=== PATIENT | female | born 1930 | race African-American/Black ===

== ENCOUNTER 2018-08-06 20:16 | Inpatient (IN) | payer MEDICARE, BC ==
[~2018-08-06] VITALS: Ht 157.5 cm; Wt 47.2 kg
[2018-08-06 20:54] LABS: Urine Bacteria NONE SEEN /hpf (None Seen); Urine Blood Negative /uL (Negative); Urine Specific Gravity 1.001 (1.001-1.035); Urine WBC 1 /hpf (0 - 5)
[2018-08-06 22:36] LABS: Basophils # (auto) 0.1 uL; Eosinophils # (auto) 0.1 uL; Lymphocytes # (auto) 1.1 uL; Monocytes # (auto) 0.5 uL; White Blood Cell 5.7 10^3/uL (4.4-10.8)
[2018-08-06 22:37] LABS: Basophils % (auto) 1.1 % (0.0-2.0); Eosinophils % (auto) 1.5 % (0.0-7.0); Hematocrit 36.6 % (36.0-46.0); Hemoglobin 11.8 g/dL (12.2-16.2); Lymphocytes % (auto) 19.8 % (10.0-50.0); Mean Corpuscular Hemoglobin 26.7 pg (28.0-32.0); Mean Corpuscular Hgb Conc. 32.3 g/dL (32.0-36.0); Mean Corpuscular Volume 82.8 fL (80.0-100.0); Monocytes % (auto) 8.7 % (0.0-12.0); Neutrophils # (auto) 3.9 uL; Neutrophils % (auto) 68.9 % (37.0-80.0); Nucleated Red Blood Cells % 0.1 %; Platelet Count (auto) 589 10^3/uL (140-450); Red Blood Cells 4.42 10^6/uL (4.0-5.20); Red Cell Distribution Width 15.3 % (11.8-14.3)
[2018-08-06 22:39] LABS: INR 1.13 (0.9-1.15)
[2018-08-06 22:44] LABS: Albumin 2.5 g/dL (3.4-5.0); Anion Gap 6 (5-15); Aspartate Aminotransferase 16 U/L (15-37); BUN/Creatinine Ratio 17.8; Blood Urea Nitrogen 16 mg/dL (7-18); Calcium 8.3 mg/dL (8.5-10.1); Carbon Dioxide 26 mmol/L (21-32); Chloride 109 mmol/L (98-107); GFR African American 76 mL/min; GFR Non-African American 63 mL/min; Glucose 91 mg/dL (74-106); Magnesium 2.5 mg/dL (1.6-2.6); Potassium 4.4 mmol/L (3.5-5.1); Sodium 141 mmol/L (136-145)
[2018-08-06 22:53] LABS: Alanine Aminotransferase 11 U/L (13-56); Alkaline Phosphatase 77 U/L (45-117); Bilirubin, Total < 0.1 mg/dL (0.2-1.0); Total Protein 7.6 g/dL (6.4-8.2)
[2018-08-07] MEDS ORDERED: LEVOFLOXACIN 750MG 150 ML IV ONE (01:15)
[2018-08-07] MEDS ORDERED: ACETAMINOPHEN 500 MG TAB PO PRN (04:30)
[2018-08-07] MEDS ORDERED: ONDANSETRON HCL 4 MG/2 ML VIAL IV PRN (04:30)
[2018-08-07 05:54] LABS: Basophils # (auto) 0.1 uL; Basophils % (auto) 1.2 % (0.0-2.0); Eosinophils # (auto) 0.1 uL; Hemoglobin 10.9 g/dL (12.2-16.2); Lymphocytes % (auto) 17.6 % (10.0-50.0); Mean Corpuscular Hemoglobin 27.1 pg (28.0-32.0); Mean Corpuscular Volume 82.1 fL (80.0-100.0); Monocytes # (auto) 0.4 uL; Monocytes % (auto) 7.7 % (0.0-12.0); Neutrophils # (auto) 4.1 uL; Neutrophils % (auto) 72.5 % (37.0-80.0); Nucleated Red Blood Cells % 0.1 %; Platelet Count (auto) 556 10^3/uL (140-450); Red Blood Cells 4.02 10^6/uL (4.0-5.20); Red Cell Distribution Width 15.3 % (11.8-14.3); White Blood Cell 5.7 10^3/uL (4.4-10.8)
[2018-08-07 06:08] LABS: BUN/Creatinine Ratio 16.5; Calcium 8.2 mg/dL (8.5-10.1); Potassium 4.2 mmol/L (3.5-5.1)
[2018-08-07] MEDS: cefTRIAXone 1GM/50ML D5W 50 ML IV SCH (09:00)
[2018-08-07] MEDS ORDERED: LISINOPRIL 10 MG TAB PO SCH (10:00)
[2018-08-07] MEDS: FAMOTIDINE 20 MG TAB PO SCH (10:12)
[2018-08-07] MEDS: AZITHROMYCIN 500MG/ 250ML 250 ML IV SCH (10:12)
[2018-08-07 13:00] VITALS: BP 152/80
--- NOTE | 2018-08-07 13:00 | NUR ---
Serena from ER [facility] admitted to Telemetry unit after SBAR received. Patient oriented to Lily Varela, primary RN, unit, room, bed, and unit policies regarding patient care and visiting hours. Patient weighed by bedscale and encouraged to call if they need something. All questions and concerns addressed, patient verbalized understanding. Note: DAUGHTER AND FAMILY AT BEDSIDE. PT ALERT AND ORIENTED X 4. DENIES ANY PAIN OR SOB AT THIS TIME. DENIES NEED FOR O2/NASAL CANULA. O2 SAT 97% IN ROOM AIR.
[2018-08-07 13:30] VITALS: BP 150/86
--- NOTE | 2018-08-07 13:30 | NUR ---
STRICT ASPIRATION PRECAUTION
--- NOTE | 2018-08-07 13:30 | NUR ---
DIETARY SPOKE TO DIETARY AND INFORMED THEM THE PT'S NEED TO HAVE HER FOOD "EXTRA PUREED AND SUPER SMOOTH". PT HAVE ESOPHAGEAL STRICTURE AND ON STRICT ASPIRATION PRECAUTION.
[2018-08-07] MEDS ORDERED: ALBUTEROL SULF 2.5 MG/0.5ML(0.5%) NEB SOLN NEB PRN (16:00)
[2018-08-07] MEDS ORDERED: IPRATROPIUM BROM 0.5 MG/2.5ML INH SOL NEB PRN (16:00)
[2018-08-07] MEDS ORDERED: hydrALAZINE HCL 20 MG/ML VL IV PRN (16:00)
[2018-08-07] MEDS: SODIUM CHLORIDE 0.9% 1,000 ML IV SCH (16:00)
--- NOTE | 2018-08-07 16:35 | NUR ---
PAGED DR PANG RE: PT'S VTE SCORE AND RISK. WAITING FOR CALL BACK.
[2018-08-07] MEDS ORDERED: ENOXAPARIN SOD 30 MG/0.3 ML SYRINGE SC ONE (17:30)
[2018-08-07 18:59] LABS: % Iron Saturation 10.6 % (15-50)
--- NOTE | 2018-08-07 19:11 | NUR ---
CLOSING NOTES PT IN BED, AWAKE AND ALERT. EATING DINNER. FAMILY AT BEDSIDE. DENIES PAIN OR SOB.
[2018-08-07] MEDS ORDERED: LISI-646 PO (19:31)
--- NOTE | 2018-08-07 19:58 | NUR ---
OPENING NOTES RECEIVED REPORT FROM DAY SHIFT NURSE. PT IS AWAKE AND ORIENTATED X 4 WITH NO S/S OF DISTRESS NOR PAIN. PT IS ON ROOM AIR. BED IS IN LOWEST POSITION WITH SIDE RAILS UP X 2. BED BRAKES ARE LOCKED AND CALL LIGHT IS WITHIN REACH. WILL CONTINUE TO MONITOR Q 1HR.
[2018-08-07 20:00] VITALS: BP 164/89
[2018-08-07 20:12] VITALS: BP 150/86
[2018-08-07 22:00] VITALS: BP 171/78
[2018-08-07 23:48] VITALS: BP 147/95
--- NOTE | 2018-08-08 02:25 | NUR ---
ALOC PT WALKED OUT TO THE NURSING STATION. ASKING WHY SHE WAS HERE. PT ALSO UNAWARE OF LOCATION. VITAL SIGNS TAKEN AND ARE FOLLOWED: TEMP 97.5; BP 140/80; HR 110; SPO2 94; RR 18. PT ASKED NUMEROUS TIME WHERE AND WHY SHE'S HERE. DONE MULTIPLE ATTEMPTS TO ORIENT PATIENT TO LOCATION AND SITUATION UNSUCCESSFULLY. PT'S AGITATION GREW AND STARTED TO CRY. SHE GOT HER CELL AND CALLED HER DAUGHTER, JAYDE MELARA, DAUGHTER ABLE TO ORIENT PATIENT TO LOCATION AND SITUATION SUCCESSFULLY. PT ALERT AND ORIENTATED X 4 WITH NO S/S OF DISTRESS NOR ANXIETY. PATIENT DESCRIBED THE EARLIER EPISODE OF WAKING UP AND NOT RECOGNIZING ANYTHING, BEING HOOKED UP TO THE IV PT FELT "TRAPPED," BEING ALONE AND NOT SEEING HER GRANDDAUGHTER AT BEDSIDE CAUSED HER TO FEEL "TRAPPED" AND "IMPRISONED."
[2018-08-08 06:00] VITALS: BP 142/73
[2018-08-08 07:02] LABS: Basophils # (auto) 0 uL; Eosinophils # (auto) 0 uL; Hemoglobin 11.2 g/dL (12.2-16.2); Lymphocytes # (auto) 0.8 uL; Monocytes # (auto) 0.5 uL; Nucleated Red Blood Cells % 0.1 %
[2018-08-08 07:04] LABS: Basophils % (auto) 0.2 % (0.0-2.0); Eosinophils % (auto) 0.5 % (0.0-7.0); Hematocrit 35.1 % (36.0-46.0); Lymphocytes % (auto) 13.2 % (10.0-50.0); Mean Corpuscular Hemoglobin 26.4 pg (28.0-32.0); Mean Corpuscular Volume 82.5 fL (80.0-100.0); Monocytes % (auto) 7.7 % (0.0-12.0); Neutrophils # (auto) 4.9 uL; Neutrophils % (auto) 78.4 % (37.0-80.0); Platelet Count (auto) 548 10^3/uL (140-450); Red Blood Cells 4.26 10^6/uL (4.0-5.20); Red Cell Distribution Width 15.4 % (11.8-14.3); White Blood Cell 6.2 10^3/uL (4.4-10.8)
[2018-08-08 07:26] LABS: Calcium 8.5 mg/dL (8.5-10.1); Magnesium 2.5 mg/dL (1.6-2.6)
[2018-08-08 07:30] LABS: BUN/Creatinine Ratio 18.4
--- NOTE | 2018-08-08 07:45 | NUR ---
closing notes endorsed care to day shift RNStefani.
--- NOTE | 2018-08-08 07:53 | NUR ---
PT ASSESSED FOR PRN HHN TX. PT IS ON ROOM AIR, SPO2 96%, HR 96, RR 18. NO S.S OF RESPIRATORY DISTRESS AT THIS TIME. PT AWARE TO HAVE RT PAGED IF BREATHING TX IS INDICATED. WILL CONTINUE TO MONITOR.
[2018-08-08 09:25] VITALS: BP 134/85
[2018-08-08] MEDS: cefTRIAXone 1GM/50ML D5W 50 ML IV SCH (10:15)
[2018-08-08] MEDS: FAMOTIDINE 20 MG TAB PO SCH (10:15)
[2018-08-08] MEDS: ENOXAPARIN SOD 30 MG/0.3 ML SYRINGE SC SCH (10:15)
[2018-08-08] MEDS: AZITHROMYCIN 500MG/ 250ML 250 ML IV SCH (10:16)
[2018-08-08] MEDS: LISINOPRIL 10 MG TAB PO SCH (10:19)
--- NOTE | 2018-08-08 10:39 | NUR ---
Hospitalist at bedside MD Olivarez at bedside, aware of patients status. New orders received for echo. Will cont care
[2018-08-08] MEDS: SODIUM CHLORIDE 0.9% 1,000 ML IV SCH (12:00)
[2018-08-08 12:23] VITALS: BP 127/70
[2018-08-08 16:41] VITALS: BP 142/75
--- NOTE | 2018-08-08 19:05 | NUR ---
Patient care endorsed endorsed care to Brett terrazas. Pt sitting up in bed no acute distress or sob noted
[2018-08-08 22:00] VITALS: BP 136/77
[2018-08-09 05:18] VITALS: BP 142/88
[2018-08-09 08:34] VITALS: BP 144/91
--- NOTE | 2018-08-09 08:37 | NUR ---
PT REPORTS THAT HE WALKS FINE AND DOES NOT NEED P.T. INTERVENTION.
--- NOTE | 2018-08-09 10:20 | NUR ---
MD AT BEDSIDE MD PANG AWARE OF PATIENTS STATUS, NEW ORDERS RECEIVED FOR CT ANGIO. TECH PAGED TO BEDSIDE. WILL CONT CARE
[2018-08-09] MEDS: SODIUM CHLORIDE 0.9% 1,000 ML IV SCH (11:09)
[2018-08-09] MEDS: cefTRIAXone 1GM/50ML D5W 50 ML IV SCH (11:09)
[2018-08-09] MEDS: FAMOTIDINE 20 MG TAB PO SCH (11:10)
[2018-08-09] MEDS: AZITHROMYCIN 500MG/ 250ML 250 ML IV SCH (11:10)
[2018-08-09] MEDS: LISINOPRIL 10 MG TAB PO SCH (11:12)
[2018-08-09] MEDS: ENOXAPARIN SOD 30 MG/0.3 ML SYRINGE SC SCH (11:12)
[2018-08-09] MEDS ORDERED: IOHEXOL 350 MG/ML 100ML IJ ONE (11:26)
--- NOTE | 2018-08-09 11:43 | NUR ---
Patient taken down to CT
[2018-08-09 13:00] VITALS: BP 137/85
--- NOTE | 2018-08-09 16:06 | NUR ---
Spoke to MD Spoke to MD Olivarez, awaiting echo results at this time. Per MD cont NS as 50ml as ordered s/p IV contrast. Will continue care
[2018-08-09 16:55] VITALS: BP 130/77
--- NOTE | 2018-08-09 19:20 | NUR ---
Opening Shift Note Assumed care of patient from day shift RN Nai. Pt is awake and alert and oriented x4. No S/S of distress/SOB or pain. Safety maintained with bed rails upx2, locked and in lowest position with call vicente within reach. Instructed on POC and to call for assist PRN, will continue to monitor for changes Q1hr and PRN.
[2018-08-09 22:00] VITALS: BP 147/89
--- NOTE | 2018-08-09 23:50 | NUR ---
Respiratory note: PT ASSESSED FOR PRN MED NEB TX. HR 81, RR 16, SPO2 97% ON 2L NC, BS DIMINISHED. NO SIGNS OF ANY RESPIRATORY DISTRESS NOTED. ADVISED PT TO PLEASE CALL IF NEEDED.
--- NOTE | 2018-08-10 00:45 | NUR ---
IV insertion IV access obtained, via clean sterile technique by inserting 22 gauge catheter at LEFT WRIST after 2 attempt(s). IV secured properly. No trauma to site. Patient tolerated well. IV removal RIGHT FA IV LEAKING. IV DC'd with clean sterile technique, catheter fully intact. Pressure dressing applied to site. Patient tolerated well.
[2018-08-10] MEDS: SODIUM CHLORIDE 0.9% 1,000 ML IV SCH (04:00)
[2018-08-10 05:00] VITALS: BP 147/77
[2018-08-10 06:45] LABS: Potassium 3.9 mmol/L (3.5-5.1)
[2018-08-10 06:48] LABS: BUN/Creatinine Ratio 12.7
--- NOTE | 2018-08-10 06:53 | NUR ---
Respiratory note: PT ASSESSED FOR PRN MED NEB TX, NO TX DESIRED NOR INDICATED. PT AWAKE/ALERT DENIES ANY SOB/DIFF BREATHING NO DISTRESS NOTED. HR 95 RR 16 SPO2 94% ON RA BREATH SOUNDS ARE DIMINISHED T/O. PT AND RN AWARE TO HAVE RT PAGED IF NEEDED.
[2018-08-10] MEDS: cefTRIAXone 1GM/50ML D5W 50 ML IV SCH (08:58)
[2018-08-10 09:08] VITALS: BP 149/77
[2018-08-10] MEDS: AZITHROMYCIN 500MG/ 250ML 250 ML IV SCH (09:42)
[2018-08-10] MEDS: FAMOTIDINE 20 MG TAB PO SCH (09:42)
[2018-08-10] MEDS: LISINOPRIL 10 MG TAB PO SCH (09:43)
[2018-08-10] MEDS: ENOXAPARIN SOD 30 MG/0.3 ML SYRINGE SC SCH (09:43)
--- NOTE | 2018-08-10 10:46 | NUR ---
AT BEDSIDE MD PANG AT BEDSIDE. AWARE OF PATIENTS STATUS. NEW ORDERS FOR D/C HOME TODAY.MD SPOKE TO PATIENT'S DAUGHTER/CAREGIVER REGARDING F/U INSTRUCTIONS OVER THE PHONE.
[2018-08-10] MEDS ORDERED: LEVO750T2 PO (11:35)
[2018-08-10] MEDS ORDERED: SACC250C PO (11:35)
[2018-08-10] MEDS ORDERED: ALBUAER3 IN (11:47)
[2018-08-10 13:00] VITALS: BP 142/81
--- NOTE | 2018-08-10 16:26 | NUR ---
Discharge instructions given as ordered to patient and caregiver. Encourage to follow up with PMD as instructed. All questions and concerns addressed. Patient verbalized understanding. Medication reconciliation form completed and copy given to patient. IV removed with catheter intact, pressure dressing applied. Patient ambulated to vehicle with all personal belongings accompanied by her son. No s/s of distress or sob noted. Pt denies pain.
== END 2018-08-10 16:26 | disposition home or self-care (01) | DRG 177 ==
LOC: ER 20:16 → OVERFLOW 08-07 04:28 → CENTRAL 08-07 12:57
PROVIDERS: ADMIT Nurse Practitioner Family; ATTEND Internal Medicine
DX: J69.0 Pneumonitis due to inhalation of food and vomit (principal); J96.00 Acute respiratory failure, unspecified whether with hypoxia or hypercapnia; J44.1 Chronic obstructive pulmonary disease with (acute) exacerbation; J44.0 Chronic obstructive pulmonary disease with (acute) lower respiratory infection; J90 Pleural effusion, not elsewhere classified; E78.5 Hyperlipidemia, unspecified; D63.8 Anemia in other chronic diseases classified elsewhere; I11.9 Hypertensive heart disease without heart failure; R91.1 Solitary pulmonary nodule; Z87.891 Personal history of nicotine dependence
CPT/HCPCS: 36415; 71045; 71275; 80048; 80053; 80061; 81001; 83540; 83550; 83605; 83735; 83880; 84443; 84484; 85025; 85379; 85610; 85730; 87040; 87086; 87804; 93005; 93306; 96361; 96365; 96367; G0378; J0696; J1956

== ENCOUNTER 2018-09-09 13:25 | Emergency (ER) | payer MEDICARE, BC ==
[~2018-09-09] VITALS: Ht 154.9 cm; Wt 44.5 kg
[~2018-09-09 13:25] MED LIST: ALBUAER3 IN; LEVO750T2 PO; LISI-646 PO; SACC250C PO
[2018-09-09 14:20] LABS: Eosinophils # (auto) 0 uL; Eosinophils % (auto) 0.6 % (0.0-7.0); Hemoglobin 13.2 g/dL (12.2-16.2); Mean Corpuscular Hemoglobin 26.8 pg (28.0-32.0); Monocytes # (auto) 0.5 uL; Nucleated Red Blood Cells % 0.1 %; Red Blood Cells 4.95 10^6/uL (4.0-5.20)
[2018-09-09 14:22] LABS: Basophils # (auto) 0.1 uL; Basophils % (auto) 1.3 % (0.0-2.0); Hematocrit 40.9 % (36.0-46.0); Mean Corpuscular Hgb Conc. 32.4 g/dL (32.0-36.0); Mean Corpuscular Volume 82.6 fL (80.0-100.0); Monocytes % (auto) 8.3 % (0.0-12.0); Neutrophils # (auto) 4.1 uL; Neutrophils % (auto) 71.8 % (37.0-80.0); Platelet Count (auto) 310 10^3/uL (140-450); White Blood Cell 5.7 10^3/uL (4.4-10.8)
[2018-09-09 14:37] LABS: Albumin 3.3 g/dL (3.4-5.0); Anion Gap 5 (5-15); BUN/Creatinine Ratio 16.4; Blood Urea Nitrogen 19 mg/dL (7-18); Calcium 8.7 mg/dL (8.5-10.1); Carbon Dioxide 29 mmol/L (21-32); Chloride 105 mmol/L (98-107); GFR African American 57 mL/min; GFR Non-African American 47 mL/min; Glucose 149 mg/dL (74-106); Magnesium 2.4 mg/dL (1.6-2.6); Potassium 3.8 mmol/L (3.5-5.1); Sodium 139 mmol/L (136-145)
[2018-09-09 14:42] LABS: Alanine Aminotransferase 13 U/L (13-56); Alkaline Phosphatase 86 U/L (45-117); Aspartate Aminotransferase 23 U/L (15-37); Bilirubin, Total 0.5 mg/dL (0.2-1.0); Total Protein 7.9 g/dL (6.4-8.2)
[2018-09-09 16:55] LABS: Urine Bacteria FEW /hpf (None Seen); Urine Blood Negative /uL (Negative); Urine Specific Gravity 1.006 (1.001-1.035); Urine WBC 1 /hpf (0 - 5)
[2018-09-09 17:15] VITALS: BP 142/69
== END 2018-09-09 18:14 | disposition home or self-care (01) ==
LOC: EDBD 13:25 → ER 13:34
DX: R55 Syncope and collapse (principal); I10 Essential (primary) hypertension; Z88.8 Allergy status to other drugs, medicaments and biological substances; Z79.899 Other long term (current) drug therapy
CPT/HCPCS: 36415; 70450; 71045; 80053; 81001; 83735; 84484; 85025; 93005

== ENCOUNTER 2019-03-28 15:02 | Inpatient (IN) | payer MEDICARE, BC ==
[~2019-03-28] VITALS: Ht 157.5 cm; Wt 37.6 kg
[2019-03-28 17:08] LABS: Eosinophils # (auto) 0 uL; Eosinophils % (auto) 0.2 % (0.0-7.0); Monocytes # (auto) 0.6 uL; White Blood Cell 8.7 10^3/uL (4.4-10.8)
[2019-03-28 17:09] LABS: Basophils # (auto) 0.1 uL; Basophils % (auto) 0.9 % (0.0-2.0); Hematocrit 36.4 % (36.0-46.0); Hemoglobin 11.7 g/dL (12.2-16.2); Lymphocytes # (auto) 1.3 uL; Lymphocytes % (auto) 14.8 % (10.0-50.0); Mean Corpuscular Hemoglobin 26.8 pg (28.0-32.0); Mean Corpuscular Volume 83.7 fL (80.0-100.0); Monocytes % (auto) 7.4 % (0.0-12.0); Neutrophils # (auto) 6.6 uL; Neutrophils % (auto) 76.7 % (37.0-80.0); Platelet Count (auto) 369 10^3/uL (140-450); Red Blood Cells 4.35 10^6/uL (4.0-5.20); Red Cell Distribution Width 17.5 % (11.8-14.3)
[2019-03-28 17:12] LABS: Urine Bacteria NONE SEEN /hpf (None Seen); Urine Blood Negative /uL (Negative); Urine WBC 13 /hpf (0 - 5)
[2019-03-28 17:16] LABS: Albumin 2.8 g/dL (3.4-5.0); Calcium 8.7 mg/dL (8.5-10.1); Potassium 3.9 mmol/L (3.5-5.1)
[2019-03-28 17:20] LABS: BUN/Creatinine Ratio 19.3; Bilirubin, Total 0.2 mg/dL (0.2-1.0); Total Protein 8.7 g/dL (6.4-8.2)
[2019-03-28] MEDS ORDERED: AZITHROMYCIN 500MG/ 250ML 250 ML IV ONE (18:30)
[2019-03-28] MEDS ORDERED: cefTRIAXone 1GM/50ML D5W 50 ML IV ONE (18:30)
[2019-03-28] MEDS ORDERED: ALBUTEROL SULF 2.5 MG/0.5ML(0.5%) NEB SOLN NEB PRN (21:00)
[2019-03-28] MEDS ORDERED: TEMAZEPAM 15 MG CAP PO PRN (21:00)
[2019-03-28] MEDS ORDERED: ACETAMINOPHEN 325 MG TAB PO PRN (21:00)
[2019-03-28] MEDS ORDERED: DOCUSATE SOD 100 MG CAP PO PRN (21:00)
[2019-03-28] MEDS ORDERED: HYDROcodone-ACET 5/325MG TAB PO PRN (21:00)
[2019-03-28] MEDS ORDERED: MECLIZINE HCL 25 MG TAB PO PRN (21:00)
[2019-03-28 22:30] VITALS: BP 123/61
--- NOTE | 2019-03-28 22:30 | NUR ---
MS admit from ER [facility] admitted to tele/MS. Patient oriented to DANIEL CHANCE RN primary RN, unit, room, bed, and unit policies regarding patient care and visiting hours. Patient weighed by bed scale and encouraged to call if they need something. All questions and concerns addressed, patient verbalized understanding.
--- NOTE | 2019-03-28 23:00 | NUR ---
Per Mariajose, patient's daughter, Patient had a chest CT due to nodule in lung. The results have been received today by the patient's PCP and are available for review upon request.
[2019-03-28] MEDS ORDERED: INFLUENZA QUAD 2019-2020 0.5ml SYRG IM ONE (23:15)
[2019-03-28] MEDS ORDERED: PNEUMOCOCCAL VACC POLYS 25 MCG/0.5 ML VIAL IM ONE (23:15)
--- NOTE | 2019-03-29 00:05 | NUR ---
Respiratory note: PT SEEN AND ASSESSED FOR PRN MED NEB TX AT 0005. TX NOT INDICATED AT THIS TIME. PT IS SLEEPING WITH NO SIGNS OF DISTRESS NOTED. HR 81 RR 18 96% ON ROOM AIR.
[2019-03-29 00:38] VITALS: BP 123/61
[2019-03-29 05:00] VITALS: BP 108/58
[2019-03-29 06:26] LABS: Basophils # (auto) 0.1 uL; Basophils % (auto) 0.9 % (0.0-2.0); Eosinophils # (auto) 0.1 uL; Eosinophils % (auto) 1.1 % (0.0-7.0); Hematocrit 33.1 % (36.0-46.0); Hemoglobin 10.7 g/dL (12.2-16.2); Lymphocytes # (auto) 1.6 uL; Lymphocytes % (auto) 24.3 % (10.0-50.0); Mean Corpuscular Hemoglobin 26.8 pg (28.0-32.0); Mean Corpuscular Hgb Conc. 32.4 g/dL (32.0-36.0); Mean Corpuscular Volume 82.6 fL (80.0-100.0); Monocytes # (auto) 0.6 uL; Monocytes % (auto) 9.7 % (0.0-12.0); Neutrophils # (auto) 4.2 uL; Nucleated Red Blood Cells % 0.1 %; Platelet Count (auto) 346 10^3/uL (140-450); White Blood Cell 6.6 10^3/uL (4.4-10.8)
[2019-03-29 06:52] LABS: Calcium 8.4 mg/dL (8.5-10.1); Potassium 3.9 mmol/L (3.5-5.1)
[2019-03-29 06:55] LABS: BUN/Creatinine Ratio 18.2
--- NOTE | 2019-03-29 07:30 | NUR ---
Opening Shift Note Assumed care of patient, awake and alert. No S/S of distress/SOB or pain. Instructed on POC and to call for assist PRN, will continue to monitor for changes Q1hr and PRN.
[2019-03-29 09:00] VITALS: BP 122/71
[2019-03-29] MEDS: cefTRIAXone 1GM/50ML D5W 50 ML IV SCH (09:19)
--- NOTE | 2019-03-29 09:30 | NUR ---
DAUGHTER AT BEDSIDE
--- NOTE | 2019-03-29 11:22 | NUR ---
Respiratory note: PT ASSESSED FOR VA N MED NEB TX. TX IS NOT INDICATED AT THIS TIME. NO SOB NOTED ON RA. HR 86, RR 14, POX 99%. B/S ARE CLEAR THROUGHOUT WITH INSPIRATORY CRACKLES IN THE LLL POSTERIORLY. PT IS AWARE THAT SHE CAN HAVE A MED NEB TX IF SHE FEELS SOB.
[2019-03-29] MEDS: AZITHROMYCIN 500MG/ 250ML 250 ML IV SCH (11:57)
[2019-03-29] MEDS: LISINOPRIL 20 MG TAB PO SCH (11:59)
--- NOTE | 2019-03-29 12:30 | NUR ---
Dr. Hirsch at bedside, explained plan of care to patient.
--- NOTE | 2019-03-29 12:31 | NUR ---
IV insertion IV access obtained, via clean sterile technique by inserting 22 gauge catheter at RIGHT FOREARM after 2 attempt(s). IV secured properly. No trauma to site. Patient tolerated well. NOTE: IV removal PREVIOUS IV PUFFY AND TENDER. DC'd with clean sterile technique, catheter fully intact. Pressure dressing applied to site. Patient tolerated well. NOTE:
[2019-03-29 13:00] VITALS: BP 120/68
--- NOTE | 2019-03-29 15:30 | NUR ---
Rounds Patient awake and alert. No S/S of distress/SOB or pain. Will continue to monitor changes q1hr and PRN.
[2019-03-29 17:00] VITALS: BP 120/68
--- NOTE | 2019-03-29 18:00 | NUR ---
Rounds Patient awake and alert. No S/S of distress/SOB or pain. Will continue to monitor changes q1hr and PRN. FAMILY AT BEDSIDE.
--- NOTE | 2019-03-29 18:52 | NUR ---
PT ASSESSED FOR PRN MED NEB TX. SPO2 99% ON RA , HR 75. PT DENIES ANY RESPIRATORY DISTRESS. NO TX INDICATED. PT IS AWARE TO HAVE RT PAGED IF TX NEEDED.
--- NOTE | 2019-03-29 19:41 | NUR ---
RECEIVED PATIENT FROM DAY SHIFT RN. PATIENT RESTING IN BED. FAMILY AT BEDSIDE. NO S/S OF DISTRESS NOTED. DENIED PAIN FOR NOW. POC INSTRUCTED AND ENCOURAGED PATIENT TO CALL FOR COMMERCIAL ENGINEER IF NEEDED. BED IN LOWEST POSITION WITH SIDE RAILS UP X 2. CALL [place] WITHIN REACH. ALARM ON. CONTINUE TO MONITOR FOR CHANGES Q1H AND PRN.
[2019-03-29 22:00] VITALS: BP 130/68
--- NOTE | 2019-03-29 22:28 | NUR ---
SPUTUM SAMPLE COLLECTED AND SENT. CONTINUE TO MONITOR.
--- NOTE | 2019-03-29 23:56 | NUR ---
PATIENT WALKED TO BATHROOM WITH STEADY GAIT. NO S/S OF DISTRESS NOTED. CONTINUE CARE.
--- NOTE | 2019-03-30 02:54 | NUR ---
PATIENT SLEEPING. NO S/S OF DISTRESS NOTED. CONTINUE CARE.
[2019-03-30 05:37] VITALS: BP 117/77
--- NOTE | 2019-03-30 07:41 | NUR ---
Opening Note Assumed pt care from [facility] nurse. Pt is a/ox4 with no s/s of distress or SOB. Pt is currently laying upright in bed with no complaints at this time. Discussed POC with pt; pt verbalized understanding. Safety measures maintained with call light within reach, bed in lowest position and side rails up. Will continue to monitor for changes q1he and prn.
--- NOTE | 2019-03-30 08:44 | NUR ---
Dr Hirsch at Bedside MD discussed plans to D/C on PO antibiotics. Pt verbalized understanding. Will follow through with d/c orders.
[2019-03-30] MEDS: cefTRIAXone 1GM/50ML D5W 50 ML IV SCH (08:48)
[2019-03-30 09:00] VITALS: BP 118/71
[2019-03-30] MEDS: AZITHROMYCIN 500MG/ 250ML 250 ML IV SCH (09:44)
[2019-03-30] MEDS: LISINOPRIL 20 MG TAB PO SCH (09:44)
[2019-03-30 10:57] VITALS: BP 118/71
--- NOTE | 2019-03-30 12:15 | NUR ---
Pt IV D/C"ed IV to pt's R FA removed fully intact. Site is asymptomatic upon d/c. Pt tolerated well. Pressure applied with gauze for 3 minutes and coban applied to site. Pt instructed to keep dressing on for 30 minutes. Pt verbalized understanding.
--- NOTE | 2019-03-30 12:35 | NUR ---
Pt D/C'ed Off Unit Pt left unit via wheelchair with all belongings, education material, prescriptions. All questions were answered. IV removed. Pt is a/ox4 with no s/s of distress or SOB.
== END 2019-03-30 12:35 | disposition home or self-care (01) | DRG 193 ==
LOC: ER 15:08 → OVERFLOW 15:09 → CENTRAL 22:22
PROVIDERS: ADMIT Nurse Practitioner; ATTEND Family Medicine
DX: J18.1 Lobar pneumonia, unspecified organism (principal); N17.0 Acute kidney failure with tubular necrosis; E44.0 Moderate protein-calorie malnutrition; N39.0 Urinary tract infection, site not specified; Z68.1 Body mass index [BMI] 19.9 or less, adult; R62.7 Adult failure to thrive; I11.0 Hypertensive heart disease with heart failure; Z82.41 Family history of sudden cardiac death; Z88.6 Allergy status to analgesic agent; Z23 Encounter for immunization; Z83.3 Family history of diabetes mellitus; Z82.49 Family history of ischemic heart disease and other diseases of the circulatory system
CPT/HCPCS: 36415; 70450; 71046; 80048; 80053; 81001; 85025; 87040; 87070; 87086; 87205; 93005; 96365; 96366; 96367; G0378; J0696

== ENCOUNTER 2019-05-08 13:19 | Emergency (ER) | payer MEDICARE, BC ==
[~2019-05-08] VITALS: Ht 157.5 cm; Wt 40.4 kg
[2019-05-08 14:14] LABS: Basophils # (auto) 0.1 uL; Eosinophils # (auto) 0 uL; Eosinophils % (auto) 0.5 % (0.0-7.0); Hematocrit 35.7 % (36.0-46.0); Hemoglobin 11.7 g/dL (12.2-16.2); Lymphocytes # (auto) 0.8 uL; Lymphocytes % (auto) 13.3 % (10.0-50.0); Mean Corpuscular Hemoglobin 27.2 pg (28.0-32.0); Mean Corpuscular Hgb Conc. 32.8 g/dL (32.0-36.0); Monocytes # (auto) 0.5 uL; Monocytes % (auto) 8.4 % (0.0-12.0); Neutrophils # (auto) 4.7 uL; Neutrophils % (auto) 76.8 % (37.0-80.0); Platelet Count (auto) 297 10^3/uL (140-450); Red Cell Distribution Width 17.1 % (11.8-14.3); White Blood Cell 6.1 10^3/uL (4.4-10.8)
[2019-05-08 14:51] LABS: Albumin 3.2 g/dL (3.4-5.0); Calcium 8.4 mg/dL (8.5-10.1); Potassium 4.4 mmol/L (3.5-5.1)
[2019-05-08 14:54] LABS: Magnesium 2.3 mg/dL (1.6-2.6)
[2019-05-08 14:56] LABS: Bilirubin, Total 0.2 mg/dL (0.2-1.0); Total Protein 8.1 g/dL (6.4-8.2)
[2019-05-08 16:00] LABS: Urine Bacteria NONE SEEN /hpf (None Seen); Urine Blood Negative /uL (Negative); Urine Specific Gravity 1.008 (1.001-1.035); Urine WBC 1 /hpf (0 - 5)
[2019-05-08 16:25] VITALS: BP 129/66
== END 2019-05-08 16:30 | disposition home or self-care (01) ==
LOC: ER 13:22
DX: R55 Syncope and collapse (principal); R42 Dizziness and giddiness; I10 Essential (primary) hypertension; Z88.6 Allergy status to analgesic agent; Z90.710 Acquired absence of both cervix and uterus; Z79.899 Other long term (current) drug therapy
CPT/HCPCS: 36415; 70450; 80053; 81001; 82962; 83735; 84484; 85025; 93005